=== PATIENT | male | born 1970 | race Two or more races ===

== ENCOUNTER 2017-05-18 12:00 | Emergency (ER) | payer OTHER ==
[~2017-05-18] VITALS: Ht 182.9 cm; Wt 158.8 kg
[2017-05-18 13:38] LABS: Basophils # (auto) 0.1 uL; Basophils % (auto) 0.7 % (0.0-2.0); Eosinophils # (auto) 0.1 uL; Eosinophils % (auto) 1.3 % (0.0-7.0); Hematocrit 47.9 % (41.0-53.0); Hemoglobin 16.5 g/dL (13.5-17.5); Lymphocytes # (auto) 2.9 uL; Lymphocytes % (auto) 32.9 % (10.0-50.0); Mean Corpuscular Hemoglobin 31.4 pg (28.0-32.0); Mean Corpuscular Hgb Conc. 34.4 g/dL (32.0-36.0); Mean Corpuscular Volume 91.2 fL (80.0-100.0); Monocytes # (auto) 0.6 uL; Monocytes % (auto) 6.9 % (0.0-12.0); Neutrophils # (auto) 5.1 uL; Neutrophils % (auto) 58.2 % (37.0-80.0); Nucleated Red Blood Cells % 0.1 %; Platelet Count (auto) 276 10^3/uL (140-450); Red Blood Cells 5.25 10^6/uL (4.5-5.90); Red Cell Distribution Width 13.2 % (11.8-14.3); White Blood Cell 8.8 10^3/uL (4.4-10.8)
[2017-05-18 13:52] LABS: INR 0.96 (0.9-1.15); Partial Thromboplastin Time 25.4 sec (22.64-33.71); Prothrombin Time 10.5 sec (9.37-12.3)
[2017-05-18 13:57] LABS: Albumin 3.8 g/dL (3.4-5.0); BUN/Creatinine Ratio 14.8; Bilirubin, Total 0.6 mg/dL (0.2-1.0); Calcium 8.4 mg/dL (8.5-10.1); Potassium 3.3 mmol/L (3.5-5.1); Total Protein 7.5 g/dL (6.4-8.2)
[2017-05-18 17:05] VITALS: BP 115/74
[2017-05-18] MEDS ORDERED: CARV3.1240 PO (17:11)
[2017-05-18] MEDS ORDERED: ASPI81TA27 PO (17:11)
[2017-05-18] MEDS ORDERED: AMLO5TAB2 PO (17:11)
[2017-05-18] MEDS ORDERED: CANA100T OR (17:11)
[2017-05-18] MEDS ORDERED: ST J150C2 PO (17:11)
[2017-05-18] MEDS ORDERED: LOSA100T27 PO (17:11)
[2017-05-18] MEDS ORDERED: HYDR25TA4 PO (17:11)
[2017-05-18] MEDS ORDERED: SITA100T7 PO (17:11)
[2017-05-18] MEDS ORDERED: METF-370 PO (17:11)
[2017-05-18] MEDS ORDERED: EMTRTAB7 PO (17:11)
[2017-05-18] MEDS ORDERED: SACC1CAP3 PO (17:14)
[2017-05-18] MEDS ORDERED: KRIL1CAP9 PO (17:14)
[2017-05-18] MEDS ORDERED: MULT1TAB61 PO (17:14)
[2017-05-18] MEDS ORDERED: ASPirin 325 MG TAB PO ONE (17:30)
== END 2017-05-18 17:52 | disposition home or self-care (01) ==
LOC: ER 12:00
DX: G45.9 Transient cerebral ischemic attack, unspecified (principal)
CPT/HCPCS: 36415; 70450; 80053; 85025; 85610; 85730